=== PATIENT | female | born 1955 | race African-American/Black ===

== ENCOUNTER 2018-01-08 12:06 | Emergency (ER) | payer MEDICAID ==
[~2018-01-08] VITALS: Ht 165.1 cm; Wt 63.5 kg
[2018-01-08 12:28] LABS: BASOPHILS % (AUTO) 0.6 % (0.0-2.0); HEMATOCRIT 37 % (33-45); HEMOGLOBIN 12.3 g/dL (11.5-14.8); LYMPHOCYTES # (AUTO) 4.2 /CMM (0.8-4.8); LYMPHOCYTES % (AUTO) 64.5 % (20.0-44.0); MEAN CORPUSCULAR HEMOGLOBIN 30 PG (26.0-33.0); MEAN CORPUSCULAR HGB CONC 33 g/dl (31.0-36.0); MEAN CORPUSCULAR VOLUME 89 fL (82-100); MONOCYTES # (AUTO) 0.3 /CMM (0.1-1.30); MONOCYTES % (AUTO) 4.2 % (2.0-12.0); NEUTROPHILS # (AUTO) 1.8 /CMM (1.8-8.9); NEUTROPHILS % (AUTO) 27.7 % (43.0-81.0); PLATELET COUNT (AUTO) 418 /CMM (150-450); RED BLOOD CELL COUNT(AUTO) 4.11 MIL/uL (4.0-5.2); WHITE BLOOD COUNT (AUTO) 6.5 K/uL (4.3-11.0)
--- NOTE | 2018-01-08 12:30 | NUR ---
BOYFRIEND CALLED, PT C/O DEPRESSION STATING "I WANT TO END MY LIFE", TOOK CLONAZEPAM 2MG, +ETOH. NAD NOTED, VSS, RESP EVEN AND UNLABORED, PT WAS PUT ON MONITOR, WAITING FOR MD HEARD.
[2018-01-08 12:37] LABS: CALCIUM, SERUM 9.4 mg/dL (8.5-10.1); CREATININE 0.8 mg/dL (0.6-1.3); POTASSIUM 3.2 mmol/L (3.5-5.1)
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
[2018-01-08] MEDS ORDERED: LORAZEPAM INJ 2 MG/ML VIAL ONE (14:57)
[2018-01-08] MEDS ORDERED: diphenhydrAMINE HCL 50 MG/ML VIAL ONE (14:58)
[2018-01-08] MEDS ORDERED: HALOPERIDOL LACTATE INJ 5 MG/ML VIAL ONE (14:58)
[2018-01-08] MEDS ORDERED: HALOPERIDOL LACTATE INJ 5 MG/ML VIAL IM ONE (15:00)
[2018-01-08] MEDS ORDERED: diphenhydrAMINE HCL 50 MG/ML VIAL IM ONE (15:00)
[2018-01-08] MEDS ORDERED: LORAZEPAM INJ 2 MG/ML VIAL IM ONE (15:00)
--- NOTE | 2018-01-08 15:34 | NUR ---
MEDICATION ADMINISTERED ORDERED PER MD. PATIENT REMAINS STABLE WITH NO DISTRESS NOTED. WILL CONTINUE TO MONITOR
--- NOTE | 2018-01-08 16:48 | NUR ---
Patient is resting comfortably in bed with eyes closed. Easily aroused. VSS
[2018-01-08 22:05] VITALS: BP 126/70
--- NOTE | 2018-01-08 22:06 | NUR ---
Patient discharged to home in stable condition. Written and verbal after care instructions given. Patient verbalizes understanding of instruction.
== END 2018-01-08 22:07 | disposition home or self-care (01) ==
LOC: EDBD 12:09 → ER 12:09
DX: F32.9 Major depressive disorder, single episode, unspecified (principal); R45.851 Suicidal ideations; F10.129 Alcohol abuse with intoxication, unspecified; F41.9 Anxiety disorder, unspecified; F10.10 Alcohol abuse, uncomplicated; I10 Essential (primary) hypertension; Y90.8 Blood alcohol level of 240 mg/100 ml or more
CPT/HCPCS: 36415; 80048; 80305; 85025; 96372 ×3; 99284; A4606; G0480 ×2; J1200; J1630; J2060; Z7610